=== PATIENT | female | born 1955 | race Caucasian/White ===

== ENCOUNTER → 2019-07-19 11:00 | Outpatient (BNVA) | payer MEDICARE, SELFPAY | PROVIDERS: Family Provider Family Medicine; PCP Family Medicine; Visit Provider Nurse Practitioner Family | DX: I10 Essential (primary) hypertension (principal); E78.2 Mixed hyperlipidemia; Z13.6 Encounter for screening for cardiovascular disorders; Z68.32 Body mass index [BMI] 32.0-32.9, adult | CPT/HCPCS: 80053; 80061 ==

== ENCOUNTER → 2019-07-28 09:51 | Outpatient (BNVA) | payer MEDICARE, SELFPAY | PROVIDERS: Family Provider Family Medicine; PCP Family Medicine; Visit Provider Anesthesiology Pain Medicine | DX: G89.29 Other chronic pain (principal); M25.561 Pain in right knee; M25.562 Pain in left knee; M51.37 Other intervertebral disc degeneration, lumbosacral region; M47.816 Spondylosis without myelopathy or radiculopathy, lumbar region; M62.830 Muscle spasm of back; M25.541 Pain in joints of right hand; M25.542 Pain in joints of left hand | CPT/HCPCS: 99204; 99999 ==

== ENCOUNTER 2019-08-17 09:58 | Outpatient (CLI) | payer MEDICARE, SELFPAY ==
--- NOTE | 2019-08-17 11:00 | MR_ITS ---
WS: [id number] MRI LUMBAR SPINE NONCONTRAST TECHNIQUE: Sagittal T1, T2 and STIR imaging. Axial T1 and T2 imaging. CLINICAL INFORMATION: lumbar pain COMPARISON: None. FINDINGS: Mild lumbar curve. Slight anterolisthesis L4 on L5. No acute compression. No high-grade central canal stenosis. L1-L2: Normal. L2-L3: No significant disc bulging. Mild facet arthropathy. Spinal canal and foramen are patent. L3-L4: Mild annular bulging. Moderate facet arthropathy. Spinal canal and foramen are patent. L4-L5: Grade 1 anterolisthesis. Mild annular bulging. Spinal canal and foramen are patent. Slight eff acement of the ventral thecal sac. Moderate to advanced facet arthropathy. L5-S1: Shallow right pericentral protrusion slightly contacts the right S1 nerve root. Spinal canal i s patent. Left eccentric disc osteophyte complex with mild left and no significant right foraminal na rrowing. Mild facet arthropathy. Visualized pelvic bony structures: Normal. Paravertebral soft tissues: Normal. MR/MR lumbar spine wo con* [id number] IMPRESSION: 1. Mild lumbar curve. No acute compression. 2. Slight anterolisthesis L4 on L5 with slight effacement of ventral thecal sa c. Advanced facet arthropathy at this level. 3. Shallow right pericentral protrusion L5-S1 slightly contacts the right S1 n erve root. Mild to left L5-S1 foraminal narrowing slightly encroaches on the ex iting left L5 nerve root. 4. Moderate facet arthropathy L3-L4 and moderate to severe facet arthropathy L 4-5.
== END 2019-08-17 09:59 | disposition home or self-care (01) ==
LOC: RADSHAW 10:01
PROVIDERS: Family Provider Family Medicine; PCP Family Medicine; Visit Provider Anesthesiology Pain Medicine
DX: M51.37 Other intervertebral disc degeneration, lumbosacral region (principal); M51.27 Other intervertebral disc displacement, lumbosacral region
CPT/HCPCS: 72148

== ENCOUNTER → 2020-06-29 10:19 | Outpatient (BNVA) | payer MEDICARE, SELFPAY | PROVIDERS: Family Provider Family Medicine; PCP Family Medicine; Visit Provider Family Medicine | DX: M17.12 Unilateral primary osteoarthritis, left knee (principal); M25.541 Pain in joints of right hand; M25.542 Pain in joints of left hand; M47.816 Spondylosis without myelopathy or radiculopathy, lumbar region | CPT/HCPCS: 80053; 85025; 85651; 86140 ==

== ENCOUNTER → 2021-01-29 10:35 | Outpatient (BNVA) | payer MEDICARE, SELFPAY | PROVIDERS: Family Provider Family Medicine; PCP Family Medicine; Visit Provider Internal Medicine | DX: M25.50 Pain in unspecified joint (principal); Z11.59 Encounter for screening for other viral diseases; Z11.1 Encounter for screening for respiratory tuberculosis; M54.5 Low back pain; G89.29 Other chronic pain; M25.469 Effusion, unspecified knee; R21 Rash and other nonspecific skin eruption; Z51.81 Encounter for therapeutic drug level monitoring; L40.9 Psoriasis, unspecified; D86.9 Sarcoidosis, unspecified | CPT/HCPCS: 99204 ==

== ENCOUNTER 2021-01-29 12:35 | Outpatient (CLI) | payer MEDICARE, SELFPAY ==
--- NOTE | 2021-01-29 12:48 | XRR_ITS ---
PROCEDURE INFORMATION: Exam: XR Right Knee Exam date and time: 01/29/2021 12:48 PM Age: 66 years old Clinical indication: Pain and condition or disease; Other: Psoriasis, unspecified; Knee; Bilateral; Additional info: M25.50 - pain in unspecified joint TECHNIQUE: Imaging protocol: XR Right knee. Views: 1 or 2 views. COMPARISON: No relevant prior studies available. FINDINGS: Bones/joints: Moderate severity medial compartment joint space loss. No fractures. Unremarkable joint space alignment. Unremarkable bone mineralization. No significant osteophytic spurring. No joint effusion. Soft tissues: Normal. XR/XR knee RT 1-2V [id number] IMPRESSION: Moderate severity medial compartment joint space loss.
--- NOTE | 2021-01-29 12:48 | XRR_ITS ---
PROCEDURE INFORMATION: Exam: XR Left Knee Exam date and time: 01/29/2021 12:48 PM Age: 66 years old Clinical indication: Pain; Knee; Bilateral; Patient HX: Psoriasis, unspecified; Additional info: M25.50 - pain in unspecified joint TECHNIQUE: Imaging protocol: XR Left knee. Views: 1 or 2 views. COMPARISON: MRI Knee w/o LEFT* [id number] 01/22/2019 2:14 PM FINDINGS: Bones/joints: Moderate narrowing of the medial joint space. No fractures. Unremarkable alignment. Negative for effusion. No lytic bone lesion. No significant osteophytic spurring. Soft tissues: Normal. XR/XR knee LT 1-2V [id number] IMPRESSION: Moderate severity medial compartment joint space loss.
--- NOTE | 2021-01-29 12:48 | XRR_ITS ---
PROCEDURE INFORMATION: Exam: XR Left Hand Exam date and time: 01/29/2021 12:48 PM Age: 66 years old Clinical indication: Pain and condition or disease; Other: Not elsewhere classified; Hand; Bilateral; Additional info: M25.50 - pain in unspecified joint TECHNIQUE: Imaging protocol: XR Left hand. Views: 1 or 2 views. COMPARISON: No relevant prior studies available. FINDINGS: Bones/joints: No fractures. Unremarkable joint space alignments. No focal bone erosions. Marginal osteophytic spurring of the interphalangeal joint spaces. Diffuse joint space narrowing. No periosteal bone reaction changes. Soft tissues: No soft tissue calcifications. XR/XR hand LT 2V [id number] IMPRESSION: Nonspecific mild severity productive arthritis changes in the digits. Favor primary osteoarthritis pattern.
--- NOTE | 2021-01-29 12:48 | XRR_ITS ---
PROCEDURE INFORMATION: Exam: XR Right Hand Exam date and time: 01/29/2021 12:48 PM Age: 66 years old Clinical indication: Pain and condition or disease; Other: Psoriasis, unspecified; Hand; Bilateral; Additional info: M25.50 - pain in unspecified joint TECHNIQUE: Imaging protocol: XR Right hand. Views: 1 or 2 views. COMPARISON: No relevant prior studies available. FINDINGS: Bones/joints: No fractures. Unremarkable joint space alignments. No focal bone erosions. Marginal osteophytic spurring of the interphalangeal joint spaces. Diffuse joint space narrowing. No periosteal bone reaction changes. Soft tissues: No soft tissue calcifications. XR/XR hand RT 2V [id number] IMPRESSION: Nonspecific mild severity productive arthritis changes in the digits. Favor primary osteoarthritis pattern.
--- NOTE | 2021-01-29 12:48 | XRR_ITS ---
PROCEDURE INFORMATION: Exam: XR Bilateral Sacroiliac Joints Exam date and time: 01/29/2021 12:48 PM Age: 66 years old Clinical indication: Condition or disease; Other: Psoriasis, unspecified; Additional info: L40.9 - psoriasis, unspecified TECHNIQUE: Imaging protocol: XR Bilateral XR of the sacroiliac joints. Views: 3 or more views. COMPARISON: MR lumbar spine wo con* [id number] 08/17/2019 11:11 AM FINDINGS: Bones/joints: No fractures. No periarticular erosions. Mild periarticular sclerosis. No significant osseous ankylosis identified. Bones are mildly demineralized diffusely. Soft tissues: Normal. XR/XR sacroiliac jts m 3V [id number] IMPRESSION: No significant sacroiliac joint abnormality identified. There is a mild degree of relatively symmetric bilateral sacroiliac joint periarticular sclerosis which is nonspecific.
--- NOTE | 2021-01-29 12:48 | XRR_ITS ---
PROCEDURE INFORMATION: Exam: XR Cervical Spine Exam date and time: 01/29/2021 12:48 PM Age: 66 years old Clinical indication: Neck pain; Additional info: M25.50 - pain in unspecified joint TECHNIQUE: Imaging protocol: XR of the cervical spine. Views: 2 or 3 views. COMPARISON: No relevant prior studies available. FINDINGS: Bones/joints: No fractures. Unremarkable alignment.The cervical spine demonstrates moderate degenerative changes at multiple levels. Soft tissues: Unremarkable. XR/XR cervical spine fl/ex [id number] IMPRESSION: No instability of cervical spine identified with flexion or extension.
[2021-01-29 14:26] LABS: Basophils # 0.1 10^3/uL (0.0-0.1); Basophils % 0.7 %; Eosinophils # 0.1 10^3/uL (0.0-0.8); Hematocrit 45.8 % (37.0-47.0); Hemoglobin 14.4 g/dL (11.5-15.3); Lymphocytes # 2.7 10^3/uL (0.8-4.8); Lymphocytes % 37.7 %; Mean Corpuscular HGB Conc 31.4 g/dL (30.0-36.0); Mean Corpuscular Hemoglobin 27.6 pg (28.0-34.0); Mean Corpuscular Volume 87.9 fL (81-99); Mean Platelet Volume 10.7 fL (7.4-10.4); Monocytes # 0.6 10^3/uL (0.2-0.9); Monocytes % 8.7 %; Neutrophils % 50.6 %; Nucleated Red Blood Cells % 0 %; Platelet Count 278 10^3/cmm (130-400); Red Blood Count 5.21 10^6/uL (4.1-5.3); White Blood Count 7.1 10^3/uL (4.0-10.0)
[2021-01-29 15:08] LABS: 25 Hydroxy Vitamin D 25 ng/mL (30-100); Alanine Aminotransferase 15 U/L (0-33); Albumin Level 4.2 g/dL (3.5-5.2); Alkaline Phosphatase 167 IU/L (35-105); Anion Gap 12.2 (5-19); Aspartate Amino Transferase 16 U/L (0-32); Blood Urea Nitrogen 12 mg/dL (8-23); C Reactive Protein 0.3 mg/L (0.0-4.9); Calcium 10.5 mg/dL (8.5-10.5); Carbon Dioxide 30 mmol/L (22-29); Chloride 102 mmol/L (98-107); Creatine Phosphokinase 40 U/L (26-192); Ferritin 264 ng/mL (15-150); Glomerular Filtration Rate 159.7 mL/min (90-130); Glucose 89 mg/dL (65-115); Magnesium 2.3 mg/dL (1.7-2.3); Osmolality Calculated 289 mOsm/kg (285-295); Phosphorus 3.1 mg/dL (2.5-4.5); Potassium 4.2 mmol/L (3.5-5.1); Sodium 140 mmol/L (136-145); Total Bilirubin 0.4 mg/dL (0.15-1.2); Total Protein 7.2 g/dL (6.6-8.7)
[2021-01-29 15:09] LABS: Hepatitis B Core AB, Total Non-Reactive (Nonreactive); Hepatitis B Surface Antigen Non-Reactive (Nonreactive); Hepatitis C Virus Antibody Non-Reactive (Nonreactive)
[2021-01-29 15:30] LABS: Erythrocyte Sedimentation Rate 19 mm/hr (0-15)
[2021-01-29 20:35] LABS: Free T4 Free Thyroxine 1.08 ng/dL (0.82-1.77)
[2021-01-30 14:28] LABS: Cyclic Citrullinated Peptide <16 UNITS
== END 2021-01-29 12:36 | disposition home or self-care (01) ==
LOC: RAD 12:39
PROVIDERS: PCP Family Medicine; Visit Provider Internal Medicine
DX: M25.50 Pain in unspecified joint (principal); Z51.81 Encounter for therapeutic drug level monitoring; L40.9 Psoriasis, unspecified; D86.9 Sarcoidosis, unspecified; Z11.59 Encounter for screening for other viral diseases
CPT/HCPCS: 36415; 72040; 72202; 73120; 73560; 80053; 82306; 82550; 82728; 83735; 84100; 84439; 84443; 85025; 85651; 86140; 86431; 86704; 86803; 87340; 99204

== ENCOUNTER → 2021-04-30 12:53 | Outpatient (BNVA) | payer MEDICARE, SELFPAY | PROVIDERS: PCP Family Medicine; Visit Provider Internal Medicine | DX: M19.90 Unspecified osteoarthritis, unspecified site (principal); M54.9 Dorsalgia, unspecified; G89.29 Other chronic pain; R70.0 Elevated erythrocyte sedimentation rate; Z79.899 Other long term (current) drug therapy; R74.8 Abnormal levels of other serum enzymes; E55.9 Vitamin D deficiency, unspecified | CPT/HCPCS: 73560; 73565; 83540; 84080; 84443; 84550; 85651; 86140; 86160; 86162; 86235; 86255; 86376; 99213; 99214 ==

== ENCOUNTER → 2021-07-30 13:42 | Outpatient (BNVA) | payer MEDICARE, SELFPAY | PROVIDERS: PCP Family Medicine; Visit Provider Nurse Practitioner Family | DX: R30.0 Dysuria (principal) | CPT/HCPCS: 81003; 87077; 87086; 87184 ==

== ENCOUNTER → 2021-08-21 15:03 | Outpatient (BNVA) | payer MEDICARE, SELFPAY | PROVIDERS: PCP Family Medicine; Visit Provider Nurse Practitioner Family | DX: R30.0 Dysuria (principal) | CPT/HCPCS: 81003; 87077; 87086; 87184 ==

== ENCOUNTER → 2021-09-18 11:46 | Outpatient (BNVA) | payer MEDICARE, SELFPAY | PROVIDERS: PCP Family Medicine; Visit Provider Nurse Practitioner Family | DX: R30.0 Dysuria (principal) | CPT/HCPCS: 81003; 87077; 87086; 87184 ==

== ENCOUNTER 2022-01-23 12:13 | Outpatient (CLI) | payer MEDICARE, SELFPAY ==
--- NOTE | 2022-01-23 12:59 | MM_ITS ---
WS: [id number] BILATERAL 3D TOMOSYNTHESIS DIGITAL SCREENING MAMMOGRAPHY WITH CAD CLINICAL INFORMATION: SCREENING HISTORY: Screening mammogram. Breast pain and soreness COMPARISON: 2018 TECHNIQUE: Bilateral CC and MLO views. FINDINGS: Scattered fibroglandular densities bilaterally. Stable oval circumscribed nodule inner LEFT breast. E ggshell calcification. This is unchanged from previous. No suspicious focal mass, asymmetry, calcific ations, or architectural distortion. No evidence of malignancy. MM/[place] [id number] IMPRESSION: BI-RADS: 2-Benign FOLLOW UP: 1 Year Follow-up Recommend return to annual screening mammography.
== END 2022-01-23 12:14 | disposition home or self-care (01) ==
PROVIDERS: PCP Family Medicine; Visit Provider Nurse Practitioner Family
DX: Z12.31 Encounter for screening mammogram for malignant neoplasm of breast (principal)
CPT/HCPCS: 77063; 77067

== ENCOUNTER 2022-01-23 12:13 | Outpatient (CLI) | payer MEDICARE, SELFPAY ==
--- NOTE | 2022-01-23 13:45 | MR_ITS ---
WS: [id number] MRI LEFT KNEE HISTORY: Chronic LEFT knee pain, multiple falls. COMPARISON: 01/22/2019 Anterior cruciate ligament: Mild mucoid degeneration of the ACL but no full-thickness tear. Posterior cruciate ligament: Intact. Medial collateral ligament: Intact. Posterior lateral corner structures: Intact. Medial menisci: Partial subluxation of the meniscus from the joint space. There is very minimal blunt ing of the anterior horn but cannot confirm tear. Similar appearance as compared to the prior exam. Lateral meniscus: Intact. Normal signal, size and shape. Extensor mechanism: Distal quadriceps tendon and patellar tendons are intact. Fluid and soft tissue: No joint effusion. No Peacock's cyst. Small fluid collection measuring 13 x 10 m m associated with the popliteus tendon at the fibular head. Osseous and articular structures: Patellofemoral compartment: Mild narrowing of patellofemoral compartment. No marrow edema. Mild loss of cartilage involving the patellar eminence and medial facet. Similar to the prior study. Medial compartment: Mild narrowing of the medial compartment with moderate loss of cartilage. Small m arginal osteophytes. No marrow edema or fracture. Lateral compartment: Mild narrowing of the lateral compartment. Mild diffuse loss of cartilage but no full-thickness defect. No marrow edema. MR/MR knee LT wo con* [id number] IMPRESSION: 1. Mild narrowing of the medial and lateral compartments with chondromalacia. Slightly greater loss of cartilage in the medial compartment. 2. Partial extrusion from the joint of the medial meniscus. Intrasubstance deg eneration within the meniscus but no definite tear. 3. Cystic mass measures 13 x 10 mm associated with the popliteus tendon near t he fibular head. Ganglion or bursitis. 4. Mild patellofemoral joint space narrowing with mild chondromalacia.
== END 2022-01-23 12:14 | disposition home or self-care (01) ==
PROVIDERS: PCP Family Medicine; Visit Provider Family Medicine
DX: M25.562 Pain in left knee (principal); M94.262 Chondromalacia, left knee
CPT/HCPCS: 73721

== ENCOUNTER → 2022-03-04 09:52 | Outpatient (BNVA) | payer MEDICARE, SELFPAY | PROVIDERS: PCP Family Medicine; Visit Provider Specialist | DX: M17.0 Bilateral primary osteoarthritis of knee (principal) | CPT/HCPCS: 20610; 99213 ==

== ENCOUNTER 2022-06-05 22:09 | Emergency (ER) | payer MEDICARE, SELFPAY ==
[2022-06-05 22:28] VITALS: BP 119/69; PULSE 84; RESP 16; TEMP 36.8; O2SAT 98; BMI 30.5
--- NOTE | 2022-06-06 01:01 | PC.NURSE ---
CHRISTOS wraps applied to bilateral legs, ankles, and feet
--- NOTE | 2022-06-06 01:08 | W.ED.EXTPRO ---
HPI - Extremity Problem General: Chief complaint: Extremity Problem,Nontraumatic Stated complaint: Knee Pain Both Time Seen by Provider: 06/05/22 23:49 Source: patient Mode of arrival: ambulatory Limitations: no limitations History of Present Illness: Patient presents to the emergency department today for evaluation and treatment of acute on chronic bilateral knee pain as well as bilateral lower extremity swelling. Patient admits that over the last several days she has been up and active including an overnight infante for her dogs which she states she did not stop walking an entire day and an entire night while trying to look for them. Patient chart review shows she has a long history of osteoarthritis-especially in her knees for which she is currently seeing orthopedics and receiving injections as well as complaints of lower extremity edema. Patient has no history of CHF. She denied any chest pain or shortness of breath. Denies any dyspnea on exertion. Patient has not been sick with fever. She denies any known acute injuries. While talking to the patient, she admits she is mostly concerned for the lower extremity edema because she is afraid to take her shoes off because she is afraid she will not be able to get them back on again. Review of Systems General: Reports: 10 or more systems reviewed and unremarkable except in HPI and below Musc: Reports: extremity pain, extremity swelling, joint pain and joint stiffness PFSH ED PFSH: Medical History GERD without esophagitis History of kidney stones Hyperlipidemia Hypertension Knee osteoarthritis Pain management contract signed Primary osteoarthritis of left knee TIA (transient ischemic attack) Surgical History History of cholecystectomy History of eye surgery bilateral lens implants Social History Smoking and tobacco status: never smoked Alcohol intake: current Alcohol intake frequency: holidays/special occasions only History of recent travel: No Physical Exam Const: COMMON NORMALS: no acute distress, patient oriented x3 and alert HENMT: COMMON NORMALS: normocephalic, atraumatic and hearing grossly normal bilaterally HEAD & SCALP: normocephalic and atraumatic Eye: COMMON NORMALS: Equal, round and reactive pupils present, EOMs intact bilaterally and conjunctivae normal CONJUNCTIVA: Yes conjunctivae normal PUPIL: Yes Equal, round and reactive pupils present Neck/C-Spine: COMMON NORMALS: no JVD Lymph: LYMPHATIC: no lymphadenopathy noted Resp: COMMON NORMALS: normal respiratory effort, No use of accessory muscles and clear to auscultation bilaterally AUSCULTATION: clear to auscultation bilaterally Cardio: COMMON NORMALS: no JVD, regular rate and regular rhythm RATE: regular rate RHYTHM: regular rhythm : COMMON NORMALS: Yes no CVA tenderness BLADDER/KIDNEY EXAM: Yes no CVA tenderness Back/Pelvis: COMMON NORMALS: no CVA tenderness, thoraco-lumbar ROM normal and straight leg raise negative bilaterally Extremity: COMMON NORMALS: normal to inspection and full ROM Neuro: COMMON NORMALS: patient oriented x3 SENSORIUM/ORIENTATION: Yes alert Skin: OTHER: Patient has several areas of small circular scabs which she indicates are bug bites noted to her lower extremities. Patient has bilateral lower extremity edema without pitting. Course Vital Signs: Vital signs: Vital Signs Temperature 98.3 F 06/05/22 22:28 Pulse Rate 84 06/05/22 22:28 Respiratory Rate 16 06/05/22 22:28 Blood Pressure 119/69 06/05/22 22:28 Pulse Oximetry 98 06/05/22 22:28 MDM - Extremity (Nontraumatic) Medical Decision Making Patient presented to the emergency department for acute on chronic issues with osteoarthritis and lower extremity swelling. Patient admits that she had been up on her feet for multiple hours on end recently and noticed onset of her swelling. We discussed compression socks but, patient states she is afraid to take her shoes off as she will not be able to get them back on. I encouraged her to stay off her feet and keep them up and elevated. Patient states that she is not able to do that as she is too busy and active to keep her feet up and elevated. Patient had compression wraps placed on her feet, ankles, and lower extremities here in the emergency department and I encouraged her to keep them on for 24 to 48 hours however, patient indicated she would not be able to do this either because she must take a bath daily. I wrote a prescription for compression socks for her to use as well. She was given return precautions for any shortness of breath, dyspnea on exertion, fever or acute worsening. Patient has an upcoming appointment with her orthopedic doctor in a week or 2 and encouraged her to keep this follow-up appointment. Patient is to continue to take her chronic medications for her joint pains. Differential Diagnosis Likely lower extremity edema (CHF, generalized edema, acute on chronic osteoarthritic pain) Discharge Plan Discharge Patient Disposition: Home Clinical Impression: Osteoarthritis, Bilateral edema of lower extremity Condition: Stable Prescriptions: New (DME) compression socks, large Misc See Rx Instructions .ROUTE Qty: 2 0RF Rx Instructions: As directed No Action cholecalciferol (vitamin D3) 2,000 unit tablet 2,000 unit PO DAILY prenat.vits,ashley,[id number] Tablet 1 tab PO DAILY famotidine [Acid Dermatologist And Dermatopathologist (famotidine)] 20 mg tablet 20 mg PO DAILY diclofenac sodium [Voltaren Arthritis Pain] 1 % gel 4 g topical QID Qty: 100 2RF Rx Instructions: apply to single knee, ankle, foot; for foot includes sole/toes/top of foot albuterol sulfate 90 mcg/actuation HFA aerosol inhaler 2 puff INHALATION Q4H PRN (Reason: shortness of breath or wheezing) Qty: 25.5 1RF PreserVision AREDS [id number] capsule 1 cap PO DAILY meloxicam [Mobic] 15 mg tablet 15 mg PO DAILY PRN (Reason: pain) fluoxetine [Prozac] 20 mg capsule 20 mg PO DAILY Qty: 90 3RF epinephrine [EpiPen] 0.3 mg/0.3 mL auto-injector 0.3 mg IM ONCE Qty: 2 0RF cyclobenzaprine 10 mg tablet See Rx Instructions .ROUTE .COMPLEX Qty: 90 1RF Dose Instruction: TAKE ONE TABLET BY MOUTH THREE TIMES A DAY NEEDED FOR MUSCLE SPASMS Rx Instructions: TAKE ONE TABLET BY MOUTH THREE TIMES A DAY NEEDED FOR MUSCLE SPASMS furosemide 20 mg tablet See Rx Instructions .ROUTE .COMPLEX Qty: 90 2RF Dose Instruction: TAKE ONE TABLET BY MOUTH EVERY MORNING Rx Instructions: TAKE ONE TABLET BY MOUTH EVERY MORNING lisinopril 5 mg tablet See Rx Instructions .ROUTE .COMPLEX Qty: 90 1RF Dose Instruction: TAKE ONE TABLET BY MOUTH ONCE DAILY Rx Instructions: TAKE ONE TABLET BY MOUTH ONCE DAILY potassium chloride 20 mEq tablet,ER particles/crystals See Rx Instructions .ROUTE .COMPLEX Qty: 90 3RF Dose Instruction: TAKE ONE TABLET BY MOUTH ONCE DAILY Rx Instructions: TAKE ONE TABLET BY MOUTH ONCE DAILY Discharge Orders: Discharge ED (Routine); Ordered 06/06/22 Ordered By: Kareen Blanc Referrals: Stephon Arteaga, [Primary Care Provider] - Discharge Activity: Limit activity as instructed Patient Instructions: Edema (ED) Activity Restrictions/Additional Instructions: I do believe the swelling you are having down in your lower legs is due to being on your feet so much. I have given you a prescription for compression socks which I recommend wearing daily. You also need to be up and off your feet more often and keep them elevated to help bring back some of the fluid which has accumulated around your ankles. Keep your upcoming appointments with both orthopedic and your dentist for continued cooperation towards a more definitive treatment of your osteoarthritis pain in your knees. Keep taking your meloxicam. If you develop shortness of breath, chest pains, fever, or edema that is causing pitting, you need to be seen and reevaluated. Coding Level of Care Code ED Licensing Director for [facility]
[2022-06-06 01:10] VITALS: BP 110/71; PULSE 79; RESP 18; O2SAT 98
== END 2022-06-06 01:13 | disposition home or self-care (01) ==
PROVIDERS: Emergency Provider Physician Assistant; PCP Family Medicine
DX: M19.90 Unspecified osteoarthritis, unspecified site (principal); R60.0 Localized edema; E78.5 Hyperlipidemia, unspecified; I10 Essential (primary) hypertension; Z86.73 Personal history of transient ischemic attack (TIA), and cerebral infarction without residual deficits
CPT/HCPCS: 99282

== ENCOUNTER → 2022-09-19 08:53 | Outpatient (BNVA) | payer MEDICARE, SELFPAY | PROVIDERS: PCP Family Medicine; Visit Provider Specialist | DX: M17.0 Bilateral primary osteoarthritis of knee (principal) | CPT/HCPCS: 20610; 73560; 73565; J7327 ==

== ENCOUNTER → 2022-11-27 13:37 | Outpatient (BNVA) | payer MEDICARE, SELFPAY | PROVIDERS: PCP Family Medicine; Visit Provider Nurse Practitioner Family | DX: M17.12 Unilateral primary osteoarthritis, left knee (principal) | CPT/HCPCS: 73560; 73565; 99213 ==

== ENCOUNTER → 2023-03-12 09:09 | Outpatient (BNVA) | payer MEDICARE, SELFPAY | PROVIDERS: PCP Family Medicine; Visit Provider Specialist | DX: M17.0 Bilateral primary osteoarthritis of knee (principal); Z01.20 Encounter for dental examination and cleaning without abnormal findings | CPT/HCPCS: 20610; 99214; J1100; J2795; J3301 ==

== ENCOUNTER → 2023-03-27 15:22 | Outpatient (BNVA) | payer MEDICARE, SELFPAY | PROVIDERS: PCP Family Medicine; Visit Provider Nurse Practitioner Family | DX: R30.0 Dysuria (principal) | CPT/HCPCS: 81003 ==

== ENCOUNTER → 2023-05-27 09:16 | Outpatient (BNVA) | payer MEDICARE, SELFPAY | PROVIDERS: PCP Family Medicine; Visit Provider Nurse Practitioner Family | DX: I10 Essential (primary) hypertension (principal); R79.89 Other specified abnormal findings of blood chemistry; E55.9 Vitamin D deficiency, unspecified; E03.9 Hypothyroidism, unspecified | CPT/HCPCS: 80053; 80061; 82043; 82652; 84443 ==

== ENCOUNTER → 2023-07-28 14:39 | Outpatient (BNVA) | payer MEDICARE, SELFPAY | PROVIDERS: PCP Family Medicine; Visit Provider Nurse Practitioner Family | DX: R30.9 Painful micturition, unspecified (principal) | CPT/HCPCS: 81003; 87077; 87086; 87184 ==